=== PATIENT | male | born 1980 | race Native Hawaiian/Other Pacific Islander ===

== ENCOUNTER 2016-09-13 15:16 | Outpatient (CLI) | payer BC | END 2016-09-13 15:43 | disposition short-term general hospital (02) | LOC: AMB 15:16 | DX: M54.2 Cervicalgia (principal); S71.112A Laceration without foreign body, left thigh, initial encounter; S40.212A Abrasion of left shoulder, initial encounter; S30.811A Abrasion of abdominal wall, initial encounter; V86.99XA Unspecified occupant of other special all-terrain or other off-road motor vehicle injured in nontraffic accident, initial encounter; Y92.414 Local residential or business street as the place of occurrence of the external cause | CPT/HCPCS: A0425; A0427 ==